=== PATIENT | female | born 1985 | race Caucasian/White ===

== ENCOUNTER 2020-08-13 12:20 | Emergency (ER) | payer MEDICAID ==
[~2020-08-13] VITALS: Ht 165.1 cm; Wt 90.7 kg
[2020-08-13 12:30] VITALS: Ht 165.1 cm; Wt 90.7 kg
[2020-08-13 14:11] LABS: CALCIUM 7.9 mg/dL (8.5-10.1); CARBON DIOXIDE 24.2 mmol/L (21-32); CHLORIDE SERUM 108 mmol/L (98-107); CREATININE SERUM 0.8 mg/dL (0.6-1.0); GFR1 > 60 mL/min; GLUCOSE SERUM 95 mg/dL (74-106); POTASSIUM SERUM 3.9 mmol/L (3.5-5.1); SODIUM SERUM 140 mmol/L (136-145)
[2020-08-13 14:15] LABS: ALBUMIN 3.6 g/dL (3.4-5.0); ALKALINE PHOSPHATASE 60 U/L (46-116); ALT/SGPT 33 U/L (14-59); AST/SGOT 17 U/L (15-37); BILIRUBIN TOTAL 0.5 mg/dL (0.20-1.00); LIPASE 70 IU/L (73-393); TOTAL PROTEIN, SERUM 6.6 g/dL (6.4-8.2)
[2020-08-13 14:18] LABS: BASOPHIL % 0.8 % (0.2-1.3); PLATELET COUNT 237 x10^3mcL (179-408); RED CELL DISTRIBUTION WIDTH 12.2 % (12.3-17.7)
[2020-08-13 15:13] LABS: UA SPECIFIC GRAVITY >=1.030 (1.005-1.035); microscopic required? YES; urine erythrocyte 3+ (NEGATIVE)
[2020-08-13 15:26] VITALS: BP 107/63
== END 2020-08-13 15:29 | disposition home or self-care (01) ==
LOC: ED 12:20
PROVIDERS: Emergency Medicine
DX: N20.1 Calculus of ureter (principal); E66.9 Obesity, unspecified; Z68.33 Body mass index [BMI] 33.0-33.9, adult
CPT/HCPCS: J1885